=== PATIENT | male | born 1960 | race Caucasian/White ===

== ENCOUNTER 2022-07-25 10:25 | Inpatient (IN) | payer BC ==
--- NOTE | 2022-07-25 10:45 | ED ---
SOB HPI - General Chief Complaint: Shortness of Breath Stated Complaint: SOB Time Seen by Provider: 07/25/22 10:42 Source: patient, RN notes reviewed Mode of arrival: ambulatory Limitations: no limitations - History of Present Illness Initial Comments: Patient is a 61-year-old male presenting to the emergency room with complaints of shortness of breath, generalized fatigue, night sweats, cough and decreased appetite with weight loss over the last 3 weeks. He reports that in May 2022 he contracted Covid and has not been significantly well since that time. He has been treated for pneumonia with antibiotic therapy twice since his diagnosis of Covid via both the emergency room at [facility] and his primary care provider. He states that he is not currently on any antibiotic therapy. He was given inhalers to utilize and states now significant improvement in symptoms from inhaler use. He denies any chest pain not related to discomfort from cough, orthopnea, lower extremity edema, abdominal pain, nausea, vomiting, diarrhea, dizziness, headaches, fevers or chills. He states that prior to being diagnosed with Covid he was overall healthy with the exception of thyroid disease which was well treated with his oral medication regimen. - Related Data Allergies Allergy/AdvReac Type Severity Reaction Status Date / Time No Known Allergies Allergy Verified 07/25/22 10:31 Review of Systems ROS Statement: Those systems with pertinent positive or pertinent negative responses have been documented in the HPI. ROS Other: All systems not noted in ROS Statement are negative. Past Medical History Past Medical History: Thyroid Disorder Additional Past Medical History / Comment(s): Prostate. History of Any Multi-Drug Resistant Organisms: None Reported Past Surgical History: Orthopedic Surgery Additional Past Surgical History / Comment(s): Back Smoking Status: Never smoker Past Alcohol Use History: None Reported Past Drug Use History: None Reported General Exam Limitations: no limitations General appearance: alert, in no apparent distress, other (Appears fatigued) Head exam: Present: atraumatic, normocephalic, normal inspection Eye exam: Present: normal appearance, PERRL, EOMI. Absent: scleral icterus, conjunctival injection, periorbital swelling ENT exam: Present: normal exam, mucous membranes moist Neck exam: Present: normal inspection, full ROM Respiratory exam: Present: wheezes (Right anterior upper), decreased breath sounds. Absent: respiratory distress, rales, rhonchi, stridor, accessory muscle use Cardiovascular Exam: Present: regular rate, normal rhythm, normal heart sounds. Absent: systolic murmur, diastolic murmur, rubs, gallop, clicks GI/Abdominal exam: Present: soft, normal bowel sounds. Absent: distended, tenderness, guarding, rebound, rigid Rectal exam: Present: deferred Extremities exam: Present: normal inspection, full ROM. Absent: pedal edema, joint swelling, calf tenderness Back exam: Present: normal inspection Neurological exam: Present: alert, oriented X3, CN II-XII intact Psychiatric exam: Present: normal affect, normal mood Course Vital Signs 07/25/22 10:28 Temperature 97.6 F Pulse Rate 107 H Respiratory 24 Rate Blood Pressure 137/84 O2 Sat by Pulse 98 Oximetry - Reevaluation(s) Reevaluation #1: Laboratory studies reveal significant leukocytosis, elevated liver enzymes, elevated alk phos and elevated d-dimer. Additional diagnostic imaging a computed tomography scan of the abdomen and pelvis without contrast and CT angiogram of the chest to rule out PE ordered. Patient continues to be hemodynamically stable not requiring any supplemental oxygen, analgesics, or antiemetics. Time: 11:49 Medical Decision Making - Medical Decision Making 61-year-old male presenting to the emergency room with shortness of breath, fatigue, night sweats and generalized unwell feeling ongoing for several months after having Covid despite treatment for Covid and bacterial pneumonia. Will obtain chest x-ray, EKG along with CBC, CMP d-dimer troponin proBNP blood cultures and thyroid level. No indication for supplemental oxygen, breathing treatment or IV antibiotics at this time. CTA was negative for pulmonary emboli or pneumonia in correlated with metastatic disease seen on CT of abdomen and pelvis. CT of the abdomen and pelvis shows metastatic disease throughout the liver with hepatomegaly and port characteristic of the pancreas with masses adjacent to or arising from the pancreas possible sigmoid wall thickening. Given newly found metastatic disease along with leukocytosis will plan for admission for further evaluation and treatment of leukocytosis and metastatic disease. Discussed case with Dr. Shin control officer for [facility] physicians who is accepting of admission. Consult placed for oncology. Attempted to order dedicated computed tomography scan however due to CTA today unable to have contrast again for 24 hours will need ordering again at later time. Will start on IV Levaquin to treat leukocytosis. Plan and findings as above discussed at length with patient and spouse. Case discussed with Dr. Taylor. - Lab Data Result diagrams: 07/25/22 10:58 07/25/22 10:58 Lab Results 07/25/22 07/25/22 07/25/22 Range/Units 10:58 10:58 10:58 WBC 17.9 H (3.8-10.6) k/uL RBC 5.11 (4.30-5.90) m/uL Hgb 15.5 (13.0-17.5) gm/dL Hct 46.6 (39.0-53.0) % MCV 91.2 (80.0-100.0) fL MCH 30.4 (25.0-35.0) pg MCHC 33.3 (31.0-37.0) g/dL RDW 12.0 (11.5-15.5) % Plt Count 376 (150-450) k/uL MPV 8.1 Neutrophils % 80 % Lymphocytes % 4 % Monocytes % 7 % Eosinophils % 8 % Basophils % 1 % Neutrophils # 14.3 H (1.3-7.7) k/uL Lymphocytes # 0.8 L (1.0-4.8) k/uL Monocytes # 1.2 H (0-1.0) k/uL Eosinophils # 1.4 H (0-0.7) k/uL Basophils # 0.1 (0-0.2) k/uL PT 11.6 (9.0-12.0) sec INR 1.1 (<1.2) APTT 24.6 (22.0-30.0) sec D-Dimer 13.02 H (<0.60) mg/L FEU Sodium 137 (137-145) mmol/L Potassium 5.1 (3.5-5.1) mmol/L Chloride 97 L (98-107) mmol/L Carbon Dioxide 28 (22-30) mmol/L Anion Gap 12 mmol/L BUN 19 (9-20) mg/dL Creatinine 0.68 (0.66-1.25) mg/dL Est GFR (CKD-EPI)AfAm >90 (>60 ml/min/1.73 sqM) Est GFR (CKD-EPI)NonAf >90 (>60 ml/min/1.73 sqM) Glucose 124 H (74-99) mg/dL Plasma Lactic Acid Vincenzo (0.7-2.0) mmol/L Calcium 9.1 (8.4-10.2) mg/dL Total Bilirubin 1.5 H (0.2-1.3) mg/dL AST 183 H (17-59) U/L ALT 215 H (4-49) U/L Alkaline Phosphatase 932 H (38-126) U/L Troponin I (0.000-0.034) ng/mL NT-Pro-B Natriuret Pep pg/mL Total Protein 6.5 (6.3-8.2) g/dL Albumin 3.6 (3.5-5.0) g/dL TSH 2.000 (0.465-4.680) mIU/L 07/25/22 07/25/22 07/25/22 Range/Units 10:58 10:58 10:58 WBC (3.8-10.6) k/uL RBC (4.30-5.90) m/uL Hgb (13.0-17.5) gm/dL Hct (39.0-53.0) % MCV (80.0-100.0) fL MCH (25.0-35.0) pg MCHC (31.0-37.0) g/dL RDW (11.5-15.5) % Plt Count (150-450) k/uL MPV Neutrophils % % Lymphocytes % % Monocytes % % Eosinophils % % Basophils % % Neutrophils # (1.3-7.7) k/uL Lymphocytes # (1.0-4.8) k/uL Monocytes # (0-1.0) k/uL Eosinophils # (0-0.7) k/uL Basophils # (0-0.2) k/uL PT (9.0-12.0) sec INR (<1.2) APTT (22.0-30.0) sec D-Dimer (<0.60) mg/L FEU Sodium (137-145) mmol/L Potassium (3.5-5.1) mmol/L Chloride (98-107) mmol/L Carbon Dioxide (22-30) mmol/L Anion Gap mmol/L BUN (9-20) mg/dL Creatinine (0.66-1.25) mg/dL Est GFR (CKD-EPI)AfAm (>60 ml/min/1.73 sqM) Est GFR (CKD-EPI)NonAf (>60 ml/min/1.73 sqM) Glucose (74-99) mg/dL Plasma Lactic Acid Vincenzo 1.9 (0.7-2.0) mmol/L Calcium (8.4-10.2) mg/dL Total Bilirubin (0.2-1.3) mg/dL AST (17-59) U/L ALT (4-49) U/L Alkaline Phosphatase (38-126) U/L Troponin I <0.012 (0.000-0.034) ng/mL NT-Pro-B Natriuret Pep 67 pg/mL Total Protein (6.3-8.2) g/dL Albumin (3.5-5.0) g/dL TSH (0.465-4.680) mIU/L - EKG Data EKG Comments: Sinus rhythm, ventricular rate 91 bpm, OK interval 151 ms, QRS duration 103 ms, QT/QTC 339/388 ms PRT axes 54, 3, 22 - Radiology Data Radiology results: report reviewed, image reviewed Two-view chest x-ray impression shows probable basilar atelectasis correlate to exclude pneumonia. CT chest angiography for PE impression shows no evidence for pulmonary embolism at this time. Metastatic disease to the liver with numerous lesions of hepatic gastric ligament adenopathy. Lungs are clear and free of infiltrate. Right basilar linear atelectasis and elevation of right hemidiaphragm. CT of the abdomen and pelvis shows metastatic disease throughout the liver with hepatomegaly. Poor characteristics of the pancreas. There are 2 masses which are adjacent to or arising from the pancreas greatest 3.8 cm in size. There is also gastrohepatic ligamentous adenopathy and periaortic adenopathy. There is questionable area of sigmoid wall thickening. Disposition Clinical Impression: Metastatic disease Disposition: ADMITTED IP TO THIS HOSP Condition: Stable Is patient prescribed a controlled substance at d/c from ED?: No Referrals: Samuel Whitten MD [Primary Care Provider] - 1-2 days Time of Disposition: 14:19
[2022-07-25 11:18] LABS: Basophils # (A) 0.1 k/uL (0-0.2); Basophils % (A) 1 %; Eosinophils # (A) 1.4 k/uL (0-0.7); Eosinophils % (A) 8 %; HCT 46.6 % (39.0-53.0); HGB 15.5 gm/dL (13.0-17.5); Lymphocytes # (A) 0.8 k/uL (1.0-4.8); Lymphocytes % (A) 4 %; MCH 30.4 pg (25.0-35.0); MCHC 33.3 g/dL (31.0-37.0); MCV 91.2 fL (80.0-100.0); Mean Platelet Volume 8.1; Monocytes # (A) 1.2 k/uL (0-1.0); Monocytes % (A) 7 %; Neutrophils # (A) 14.3 k/uL (1.3-7.7); Neutrophils % (A) 80 %; Platelet Count 376 k/uL (150-450); RBC 5.11 m/uL (4.30-5.90); WBC 17.9 k/uL (3.8-10.6)
[2022-07-25 11:28] LABS: ALT 215 U/L (4-49); AST 183 U/L (17-59); African American GFR (CKD) >90 (>60 ml/min/1.73 sqM); Albumin 3.6 g/dL (3.5-5.0); Alkaline Phosphatase 932 U/L (38-126); Anion Gap 12 mmol/L; Blood Urea Nitrogen 19 mg/dL (9-20); Calcium 9.1 mg/dL (8.4-10.2); Carbon Dioxide 28 mmol/L (22-30); Chloride 97 mmol/L (98-107); Glucose 124 mg/dL (74-99); Non-African American GFR(CKD) >90 (>60 ml/min/1.73 sqM); Potassium 5.1 mmol/L (3.5-5.1); Sodium 137 mmol/L (137-145); Total Bilirubin 1.5 mg/dL (0.2-1.3); Total Protein 6.5 g/dL (6.3-8.2)
--- NOTE | 2022-07-25 11:36 | XR ---
EXAMINATION TYPE: XR chest 2V DATE OF EXAM: 07/25/2022 COMPARISON: NONE HISTORY: Difficulty breathing TECHNIQUE: Frontal and lateral views of the chest are obtained. FINDINGS: There is patchy density at the right lung base, no pneumothorax or pleural effusion. The cardiac silhouette size is within normal limits. Right hemidiaphragm is elevated. The osseous struct ures are intact, there is a spinal curvature, thoracic spondylosis. The aorta is dense. IMPRESSION: Probable basilar atelectasis, correlate to exclude pneumonia and follow-up as indicated
[2022-07-25 11:45] LABS: INR 1.1 (<1.2)
[2022-07-25 11:46] LABS: Partial Thromboplastin Time 24.6 sec (22.0-30.0); Prothrombin Time 11.6 sec (9.0-12.0)
--- NOTE | 2022-07-25 13:13 | CT ---
EXAMINATION TYPE: CT chest angio for PE DATE OF EXAM: 07/25/2022 COMPARISON: None HISTORY: Shortness of breath CT DLP: 688.4 mGycm CONTRAST: CT chest with contrast and 3D reconstruction with MIP imaging is performed without and with IV Contra st, patient injected with 100 ml mL of Isovue 370. Contrast-enhanced CT of the chest was performed through the course of the pulmonary arteries with matt g and mediastinal window settings submitted. 3D reconstruction with MIP imaging was also performed. PULMONARY ARTERIES: The pulmonary arteries and their major tributaries are patent. I do not see connie dence for sizable filling defect to suggest pulmonary embolic process. LUNGS: The lungs are clear and free of infiltrate. Right basilar linear atelectasis and elevation rig ht hemidiaphragm No pulmonary nodule or mass is detected. No pleural effusion. MEDIASTINUM: Thoracic aorta is of normal caliber. The heart is not enlarged. No evidence for medias tinal mass. No mediastinal lymph nodes greater than 1cm. HILAR STRUCTURES: No evidence for mass. No hilar lymph nodes greater than 1 cm. UPPER ABDOMEN: Multiple hepatic lesions noted compatible with metastatic disease. Hepatomegaly. IMPRESSION: 1. No evidence for Pulmonary embolism at this time. 2. Metastatic disease to the liver with numerous lesions noted too numerous to count. Hepato gastric ligament adenopathy.
--- NOTE | 2022-07-25 13:23 | CT ---
EXAMINATION TYPE: CT abdomen pelvis wo con DATE OF EXAM: 07/25/2022 COMPARISON: None HISTORY: Elevated LFTs and alk phos CT DLP: 688.4 mGycm Examination of the solid and hollow viscera is limited given the lack of contrast. FINDINGS: LUNG BASES: No evidence for nodule. No evidence for infiltrate. LIVER/GB: There is hepatomegaly noted within numerous underlying hepatic mass is noted compatible wit h metastatic disease. The lack of contrast does limit evaluation. The gallbladder appears to be contr acted. PANCREAS: There are masses adjacent to or arising from the pancreatic neck and body limited in evalua tion given the lack of contrast. The masses measures 3.8 cm the second mass measures 3.1 cm. This cou ld reflect adenopathy versus mass arising from the pancreas. Dedicated contrast enhanced CT of the ab domen and pelvis is recommended with pancreatic protocol. SPLEEN: No evidence for splenomegaly. No intrasplenic lesions seen. ADRENALS: Nodular thickening of the left adrenal gland could reflect metastatic disease. Right adrena l gland appears unremarkable. KIDNEYS: Parapelvic cysts suggested. No nephrolithiasis. No hydronephrosis. BOWEL: Appendix has a normal appearance. No evidence of bowel obstruction. No inflammatory process. V ague area of bowel wall thickening sigmoid colon axial image 67. Correlate Clinically although relate d to poor distention although if felt clinically indicated consider direct visualization. Lymph nodes: There is adenopathy in the gastrohepatic ligament measuring up to 1.7 cm. Left para-aort ic adenopathy noted measuring up to 1.4 cm. Abdominal aorta: Atheromatous changes seen. No evidence for aneurysm. Genital organs: No significant abnormality. Other: Small amount of free fluid within the pelvis. IMPRESSION: 1. Metastatic disease throughout the liver with hepatomegaly. 2. Poor characterization of the pancreas. As noted there are 2 masses which are adjacent to or arisin g from the pancreas. There is also gastrohepatic ligamentous adenopathy and paraAortic adenopathy. Ap propriate contrast enhanced evaluation is advised. 3. Questionable area of sigmoid wall thickening. See above.
[2022-07-25] MEDS ORDERED: NALOXONE 0.4 MG/ML 1 ML VIAL IV PRN ×2 (13:49→16:02)
[2022-07-25] MEDS ORDERED: LEVOFLOXACIN 500MG-D5W PMX 500 MG in DEXTROSE/WATER 1 100ML.BAG IVPB STA (13:55)
[2022-07-25] MEDS ORDERED: ACETAMINOPHEN TAB 325 MG TAB PO PRN (16:02)
[2022-07-25] MEDS ORDERED: CODEINE 30 MG TAB PO PRN (16:05)
[2022-07-25] MEDS ORDERED: ALBUTEROL NEBULIZED 2.5 MG/3 ML INHALATION PRN (16:06)
--- NOTE | 2022-07-25 16:07 | P.HPIM ---
History of Present Illness H&P Date: 07/25/22 Chief Complaint: Generalized weakness, shortness of breath 61-year-old man with medical history of BPH, hypothyroidism presented with generalized weakness and shortness of breath. Patient says that he's been progressively declining since he got Covid in the beginning of May of this year. Since that time, patient has had a chronic cough associated with shortness of breath. Patient says that he is also been losing weight since May, and has now lost about 10-15 pounds. In addition, he's noticed some increasing abdominal pain but does not associate this with nausea, vomiting, constipation, diarrhea. He says that he also gets chills, but no fevers. Patient has not noticed swelling of the legs. Patient's most concerning complaint is that he has almost no energy to do any activities like he used to. He denies fevers, chest pain, palpitations, syncope, presyncope, dysuria, dyschezia, numbness of extremities. In the emergency room, patient was afebrile, 137/84, heart rate 107, 98% on room air. CBC demonstrates leukocytosis to 17.9. Chemistries are unremarkable. Liver function tests show an elevated total bilirubin of 1.5, AST of 183, ALT of 215, alkaline phosphatase of 932. TSH was 2. Initial troponin is less than 0.012. Coags are unremarkable. D-dimer is 13.02. Chest x-ray demonstrates patchy density at the right lung base concerning for pneumonia. Chest CTA shows no evidence of pulmonary embolism but shows metastatic disease to liver with numerous lesions too numerous to count, hepatogastric ligament adenopathy. CT of the abdomen/pelvis redemonstrates metastatic disease, 2 masses which are adjacent to arising from the pancreas, para-aortic adenopathy, questionable area of sigmoid wall thickening. EKG demonstrated sinus rhythm with no evidence of ischemia. All Systems reviewed and pertinent positives and negatives noted in HPI, all other symptoms are negative Gen: in no apparent distress, resting comfortably in bed Eyes: PERRL, no scleral injection or icterus HENT: normocephalic, atraumatic, good hearing acuity, moist mucous membranes Neck: no tracheal deviation, full range of motion Resp: good air exchange, breathing comfortably with no accessory muscle use, no tactile fremitus, crackles in the right lung base CVS: good distal perfusion x 4, no pitting edema, regular rate and rhythm without murmurs GI: soft, tenderness to palpation in the epigastrium, right upper quadrant, ND, no hepatosplenomegaly : no suprapubic tenderness, no CVAT, frank catheter not present MSK: no clubbing, no cyanosis, no noted contractures of extremities Skin: no noted rashes, petechiae; temperature of skin is appropriate Neuro: moving all extremities without signs of weakness, CN II-XII intact Psych: cooperative, euthymic mood, insight and judgment intact Labs and imaging reviewed as above Assessment/plan: Sepsis Community acquired pneumonia -Admit to inpatient, telemetry -Ceftriaxone, azithromycin -Follow up blood cultures -Follow up sputum cultures -Oxygen when necessary -Cough syrup when necessary -Albuterol when necessary -PT/OT Metastatic cancer to liver -Oncology consult -Surgery consult -Computed tomography scan with pancreatic protocol BPH Hypothyroidism -Home medications reviewed and reconciled Patient is full code DVT prophylaxis with enoxaparin Past Medical History Past Medical History: Thyroid Disorder Additional Past Medical History / Comment(s): Prostate. History of Any Multi-Drug Resistant Organisms: None Reported Past Surgical History: Orthopedic Surgery Additional Past Surgical History / Comment(s): Back Smoking Status: Never smoker Past Alcohol Use History: None Reported Past Drug Use History: None Reported Medications and Allergies Home Medications Medication Instructions Recorded Confirmed Type Albuterol Inhaler [Ventolin Hfa 1 puff INHALATION RT-Q6H PRN 07/25/22 07/25/22 History Inhaler] Tamsulosin [Flomax] 0.4 mg PO DAILY 07/25/22 07/25/22 History Thyroid,Pork [Stitching Machine Feeder Or Offbearer Thyroid] 60 mg PO DAILY 07/25/22 07/25/22 History Allergies Allergy/AdvReac Type Severity Reaction Status Date / Time No Known Allergies Allergy Verified 07/25/22 14:31 Physical Exam Osteopathic Statement: *. No significant issues noted on an osteopathic structural exam other than those noted in the History and Physical/Consult. Vitals: Vital Signs Temp Pulse Resp BP Pulse Ox 07/25/22 14:00 22 07/25/22 10:28 97.6 F 107 H 24 137/84 98 Intake and Output 07/25/22 07/25/22 07/25/22 06:59 14:59 22:59 Other: Weight 89.811 kg Results CBC & Chem 7: 07/25/22 10:58 07/25/22 10:58 Labs: Abnormal Lab Results - Last 24 Hours (Table) 07/25/22 07/25/22 07/25/22 Range/Units 10:58 10:58 10:58 WBC 17.9 H (3.8-10.6) k/uL Neutrophils # 14.3 H (1.3-7.7) k/uL Lymphocytes # 0.8 L (1.0-4.8) k/uL Monocytes # 1.2 H (0-1.0) k/uL Eosinophils # 1.4 H (0-0.7) k/uL D-Dimer 13.02 H (<0.60) mg/L FEU Chloride 97 L (98-107) mmol/L Glucose 124 H (74-99) mg/dL Total Bilirubin 1.5 H (0.2-1.3) mg/dL AST 183 H (17-59) U/L ALT 215 H (4-49) U/L Alkaline Phosphatase 932 H (38-126) U/L
[2022-07-25] MEDS: ENOXAPARIN 40 MG/0.4 ML SYRINGE SQ SCH (16:32)
[2022-07-25] MEDS: HYDROcodone/APAP 5-325MG 1 EACH TAB PO PRN (17:10)
[2022-07-25] MEDS: AZITHROMYCIN 500 MG in SODIUM CHLORIDE 0.9% 250 ML IVPB SCH (17:11)
[2022-07-26] MEDS: ONDANSETRON 4 MG/2 ML VIAL IVP PRN (04:28)
[2022-07-26] MEDS: MORPHINE SULFATE 4 MG/ML SYRINGE IVP PRN ×3 (04:29→12:29)
[2022-07-26] MEDS: TAMSULOSIN 0.4 MG CAP.ER.24H PO SCH ×2 (08:46→08:47)
[2022-07-26] MEDS: THYROID, PORK 30 MG TAB PO SCH (08:47)
[2022-07-26] MEDS: ENOXAPARIN 40 MG/0.4 ML SYRINGE SQ SCH (08:47)
[2022-07-26] MEDS: AZITHROMYCIN 500 MG in SODIUM CHLORIDE 0.9% 250 ML IVPB SCH (08:52)
[2022-07-26 08:53] LABS: HCT 40.6 % (39.6-50.0); HGB 13.7 g/dL (13.0-17.0); MCH 30.3 pg (27.0-32.0); MCHC 33.7 g/dL (32.0-37.0); MCV 89.8 fL (80.0-97.0); Mean Platelet Volume 10.1 fL (9.5-12.2); NRBC Per 100 WBC 0 /100 WBCS (0.0-0.0); Platelet Count 392 X 10*3/uL (140-440); RBC 4.52 X 10*6/uL (4.40-5.60); RDW 12.4 % (11.5-14.5); WBC 17.82 X 10*3/uL (4.50-10.00)
[2022-07-26 09:25] LABS: African American GFR (CKD) 116.4 (60.0-200.0); Albumin 3.1 g/dL (3.8-4.9); Albumin/Globulin Ratio 1.29 (1.60-3.17); BUN/Creat Ratio 22.14 Ratio (12.00-20.00); Blood Urea Nitrogen 15.5 mg/dL (9.0-27.0); Calcium 8.9 mg/dL (8.7-10.3); Globulin 2.4 g/dL (1.6-3.3); Non-African American GFR(CKD) 100.4 (60.0-200.0); Potassium 5.4 mmol/L (3.5-5.5); Total Bilirubin 0.9 mg/dL (0.30-1.20); Total Protein 5.5 g/dL (6.2-8.2)
[2022-07-26 09:45] LABS: Basophils # (A) 0.12 X 10*3/uL (0.00-0.10); Basophils % (A) 0.7 %; Eosinophils # (A) 1.59 X 10*3/uL (0.04-0.35); Eosinophils % (A) 8.9 %; Immature Grans, Automated 1.1 %; Lymphocytes # (A) 0.95 X 10*3/uL (0.90-5.00); Lymphocytes % (A) 5.3 %; Monocytes # (A) 1.85 X 10*3/uL (0.20-1.00); Monocytes % (A) 10.4 %; Neutrophils # (A) 13.11 X 10*3/uL (1.80-7.70); Neutrophils % (A) 73.6 %
--- NOTE | 2022-07-26 13:38 | P.PN ---
Subjective Progress Note Date: 07/26/22 Principal diagnosis: SOB Hospital Course: 61-year-old male with history of BPH and hypothyroidism presenting with generalized weakness and shortness of breath. Labs significant for a leukocytosis, elevated liver enzymes, increased d-dimer. CTA chest showed no evidence of pulmonary embolism but showed metastatic disease to liver. CT abdomen and pelvis also showed metastatic disease, 2 masses were adjacent to the pancreas, paralytic adenopathy, questionable area of sigmoid wall thickening. Patient admitted for sepsis, recurrent pneumonia, and also further evaluation of metastatic cancer to liver. Subjective: Patient seen and examined at bedside. No acute events overnight. He claims that his shortness of breath is about the same. Denies any use of oxygen. He continues to have abdominal pain mostly in the right upper quadrant. Pertinent positives and negatives as discussed above, a complete review of systems was performed and all other systems are negative. Vitals Signs Reviewed. General: nontoxic, no distress, appears at stated age Derm: warm, dry Head: atraumatic, normocephalic, symmetric Eyes: EOMI, no lid lag, anicteric sclera Mouth: no lip lesion, mucus membranes moist Cardiovascular: S1S2 reg, no murmur Lungs: CTA bilateral, no rhonchi, no rales , no accessory muscle use Abdominal: soft, mild tender to palpation in right upper quadrant, no guarding, no appreciable organomegaly Ext: no gross muscle atrophy, no edema, no contractures Neuro: CN II-XI grossly intact, no focal neuro deficits Psych: Alert, oriented, appropriate affect Assessment and Plan: Sepsis Community acquired pneumonia -Admit to inpatient, telemetry -Ceftriaxone, azithromycin -Follow up blood cultures -Follow up sputum cultures -Oxygen when necessary -Cough syrup when necessary -Albuterol when necessary -PT/OT Metastatic cancer to liver -Oncology consult -Surgery consult BPH Hypothyroidism -Home medications Patient is full code DVT prophylaxis with enoxaparin Objective - Vital Signs Vital signs: Vital Signs Temp 99.4 F 07/26/22 12:17 Pulse 67 07/26/22 12:17 Resp 16 07/26/22 12:17 BP 130/85 07/26/22 12:17 Pulse Ox 95 07/26/22 12:17 FiO2 Intake & Output 07/25/22 07/26/22 07/26/22 18:59 06:59 18:59 Weight 89.811 kg - Labs CBC & Chem 7: 07/26/22 05:40 07/26/22 05:40 Labs: Abnormal Lab Results - Last 24 Hours (Table) 07/26/22 07/26/22 Range/Units 05:40 05:40 WBC 17.82 H (4.50-10.00) X 10*3/uL Immature Gran # 0.20 H (0.00-0.04) X 10*3/uL Neutrophils # 13.11 H (1.80-7.70) X 10*3/uL Monocytes # 1.85 H (0.20-1.00) X 10*3/uL Eosinophils # 1.59 H (0.04-0.35) X 10*3/uL Basophils # 0.12 H (0.00-0.10) X 10*3/uL Carbon Dioxide 29.0 H (20.0-27.5) mmol/L BUN/Creatinine Ratio 22.14 H (12.00-20.00) Ratio AST 108 H (14-35) U/L ALT 172 H (10-49) U/L Alkaline Phosphatase 787 H (41-126) U/L Total Protein 5.5 L (6.2-8.2) g/dL Albumin 3.1 L (3.8-4.9) g/dL Albumin/Globulin Ratio 1.29 L (1.60-3.17) g/dL Microbiology - Last 24 Hours (Table) 07/25/22 10:58 Blood Culture - Preliminary Blood No Growth after 24 hours 07/25/22 10:42 Blood Culture - Preliminary Blood No Growth after 24 hours
--- NOTE | 2022-07-26 16:18 | P.CONS ---
History of Present Illness - Reason for Consult Consult date: 07/26/22 Liver masses, adenopathy - History of Present Illness The patient is a 58-year-old white male, with well-controlled medical problems at baseline. The patient states that he contracted COVID in 05/23. Since then he has had persistent issues with intermittent shortness of breath and cough. He states that his symptoms would improve and then recur. They have become somewhat more persistent and prominent, leading to this admission. Other associated symptoms include decreased appetite and loss of weight of about 10-15 pounds. He has had some vague upper abdominal discomfort but no associated nausea or vomiting, or change in bowel habits. The patient had chest imaging on admission including CTA that showed right l ower lobe suggestive of pneumonia. Incidentally the liver was involved with multiple hypodense masses highly suggestive of metastasis. There was also upper abdominal, pathologic appearing adenopathy. The patient then had dedicated CT of the abdomen and pelvis confirmed these findings and also showed 2 masses associated with the pancreas, suggestive of either pancreatic primary or possibly peripancreatic enlarged lymph nodes was therefore admitted for further management. In any prior history of malignancy. He states that he has been a nonsmoker and did not recall any significant secondhand smoking exposure either. He drinks alcohol socially. He states that some family members on his mother's side had prostate cancer. He states that he has had a colonoscopy within the last 3-4 years Review of Systems Constitutional: Reports fatigue, Reports poor appetite, Reports weight loss Eyes: denies blurred vision, denies pain Ears: deny: decreased hearing, ear discharge, earache, tinnitus Ears, nose, mouth and throat: Denies headache, Denies sore throat Cardiovascular: Denies chest pain, Denies shortness of breath Respiratory: Reports congestion, Reports cough, Reports dyspnea Gastrointestinal: Reports dyspepsia Genitourinary: Reports as per HPI Musculoskeletal: Denies myalgias Integumentary: Denies pruritus, Denies rash Neurological: Reports weakness Psychiatric: Denies anxiety, Denies depression Endocrine: Reports fatigue Hematologic/Lymphatic: Reports as per HPI Past Medical History Past Medical History: Thyroid Disorder Additional Past Medical History / Comment(s): Prostate. 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 Thyroid] 60 mg PO DAILY 07/25/22 07/25/22 History Allergies Allergy/AdvReac Type Severity Reaction Status Date / Time No Known Allergies Allergy Verified 07/25/22 14:31 Physical Exam Vitals: Vital Signs Temp Pulse Resp BP Pulse Ox 07/26/22 12:17 99.4 F 67 16 130/85 95 07/26/22 04:32 71 16 120/75 97 07/26/22 03:00 77 20 128/90 96 07/26/22 00:00 99.4 F 85 18 118/82 99 07/25/22 20:35 72 18 126/78 98 07/25/22 19:20 71 16 114/74 99 07/25/22 17:17 69 18 114/76 98 07/25/22 16:39 73 17 130/87 97 - Constitutional General appearance: no acute distress - EENT Eyes: EOMI, PERRLA ENT: hearing grossly normal, normal oropharynx - Neck Neck: no lymphadenopathy Thyroid: bilateral: normal size - Respiratory Respiratory: right: rales (Minor), left: CTA - Cardiovascular Rhythm: regular Heart sounds: normal: S1, S2 - Gastrointestinal Wakefulness and right upper quadrant. No tenderness General gastrointestinal: normal bowel sounds, soft - Integumentary Integumentary: normal - Neurologic Neurologic: CNII-XII intact - Musculoskeletal Musculoskeletal: generalized weakness, strength equal bilaterally - Psychiatric Psychiatric: A&O x's 3, appropriate affect Results CBC & Chem 7: 07/26/22 05:40 07/26/22 05:40 Labs: Abnormal Lab Results - Last 24 Hours (Table) 07/26/22 07/26/22 Range/Units 05:40 05:40 WBC 17.82 H (4.50-10.00) X 10*3/uL Immature Gran # 0.20 H (0.00-0.04) X 10*3/uL Neutrophils # 13.11 H (1.80-7.70) X 10*3/uL Monocytes # 1.85 H (0.20-1.00) X 10*3/uL Eosinophils # 1.59 H (0.04-0.35) X 10*3/uL Basophils # 0.12 H (0.00-0.10) X 10*3/uL Carbon Dioxide 29.0 H (20.0-27.5) mmol/L BUN/Creatinine Ratio 22.14 H (12.00-20.00) Ratio AST 108 H (14-35) U/L ALT 172 H (10-49) U/L Alkaline Phosphatase 787 H (41-126) U/L Total Protein 5.5 L (6.2-8.2) g/dL Albumin 3.1 L (3.8-4.9) g/dL Albumin/Globulin Ratio 1.29 L (1.60-3.17) g/dL Microbiology - Last 24 Hours (Table) 07/25/22 10:58 Blood Culture - Preliminary Blood No Growth after 24 hours 07/25/22 10:42 Blood Culture - Preliminary Blood No Growth after 24 hours Chest x-ray: report reviewed CT scan - abdomen: report reviewed CT scan - chest: report reviewed CT scan - pelvis: report reviewed Assessment and Plan (1) Metastatic disease Narrative/Plan: The patient is presented with a picture of metastatic cancer, with numerous hypodense 2 through the liver. He also has some upper abdominal lymphadenopathy, and pancreatic or biliary pancreatic lesions - The results of the scans and implications were discussed in detail with him. As noted above, he was advised that he appears to have metastatic malignancy. At this time an obvious primary site cannot be determined, but given the presentation, and the possibility of pancreatic lesions, a pancreatic primary is definitely in the differential. - Patient was advised that the next step in workup would be to get a tissue diagnosis. CT-guided biopsy of the liver will be ordered. - If pathology confirms upper GI/pancreatobiliary origin, then MRCP can be performed to evaluate the pancreas. If this confirms that the lesions noted on CT scan are arising from the pancreas, and a pancreatic primary can be confirmed. - If pathology is concerning for other primary sites, then appropriate workup for the same can be ordered. - We also discussed that in general most solid tumor malignancies, if metastatic are not curable. However we would need a definite pathologic diagnosis and primary site before any specific information can be given regarding treatment options and prognosis. Current Visit: Yes Status: Acute Code(s): C79.9 - SECONDARY MALIGNANT NEOPLASM OF UNSPECIFIED SITE SNOMED Code(s): 298854691 Plan: Defer to the admitting service for treatment of possible pneumonia
--- NOTE | 2022-07-26 16:32 | P.GSCN ---
History of Present Illness Consult date: 07/26/22 History of present illness: CHIEF COMPLAINT: Shortness of breath and generalized weakness HISTORY OF PRESENT ILLNESS: This is a 61-year-old male who presented to the [facility] with complaints of generalized weakness and shortness of breath. Patient reports that he has not been feeling well since May when he was initially diagnosed with cold bid. Since then he has been treated for pneumonia as and viral and bacterial infections. Patient reports that he is overall feeling weak. And is having abdominal pain. He reports a decrease in appetite over the last 3-4 days. He's had 15 pound weight loss within the last 1-2 months. He does report having small bowel movements and flatus. Last colonoscopy was about 10 years ago. Computed tomography scan of the abdomen and pelvis completed showing concerns for metastatic disease throughout the liver with hepatomegaly. There was too masses adjacent to or arising from the pancreas. Surgical service consulted in regards to the hepatic masses as well as consult was placed for oncology. Patient denies any prior cancer history. Patient is currently on antibiotics for possible pneumonia. Patient seen and examined with Dr. lama PAST MEDICAL HISTORY: See list. PAST SURGICAL HISTORY: See list. MEDICATIONS: See list. ALLERGIES: See list. SOCIAL HISTORY: No illicit drug use. REVIEW OF SYSTEMS: CONSTITUTIONAL: Denies fever or chills. HEENT: Denies blurred vision, vision changes, or eye pain. Denies hemoptysis CARDIOVASCULAR: Denies chest pain or pressure. RESPIRATORY: No shortness of breath. GASTROINTESTINAL: See HPI for pertinent findings HEMATOLOGIC: Denies bleeding disorders. GENITOURINARY: Denies any blood in urine or increased urinary frequency. SKIN: Denies pruitis. Denies rash. PHYSICAL EXAM: VITAL SIGNS: Reviewed GENERAL: Well-developed in no acute distress. HEENT: No sclera icterus. Extraocular movements grossly intact. Moist buccal mucosa. Head is atraumatic, normocephalic. No nasal drainage. ABDOMEN: Soft. Nondistended. Tenderness with palpation in the right upper quadrant and epigastric area NEUROLOGIC: Alert and oriented. Cranial nerves II through XII grossly intact. LABORATORY DATA: WBC is 17.8 Hgb 13.7 platelets 392 Sodium is 139 potassium is 5.4 creatinine 0.7 Glucose 124 Lactic acid 1.9 Total bilirubin 1.5 down to 0.90 AST 183 down to 108 ALT 2:15 down to 172 alk phos 932 down to 787 Magnesium 2.0 TSH 2.0 Elevated d-dimer IMAGING: Computed tomography scan of the abdomen and pelvis metastatic disease throughout the liver with hepatomegaly. Poor characterization of the pancreas. As noted there are 2 masses which are adjacent to or arising from the pancreas. There is also gastrohepatic ligament this adenopathy and para-aortic adenopathy. Question will area of sigmoid wall thickening. Chest CTA no evidence of pulmonary embolism. Metastatic disease to the liver with numerous lesions noted to numerous to count. A gastric ligament adenopathy. ASSESSMENT: 1. Metastatic disease throughout the liver with hepatomegaly and 2 masses adjacent or arising from the pancreas with gastrohepatic ligament adenopathy and para-aortic adenopathy 2. Abdominal pain PLAN: -EGD and colonoscopy scheduled for , 07/28/[address] lama -Start clear liquid diet -Start GoLYTELY prep tomorrow morning -Continue oncology workup -Patient scheduled for liver biopsy by interventional radiology Thank you for this consultation Physician Esthetician note has been reviewed by physician. Signing provider agrees with the documented findings, assessment, and plan of care. Past Medical History Past Medical History: Thyroid Disorder Additional Past Medical History / Comment(s): Prostate. 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] 60 mg PO DAILY 07/25/22 07/25/22 History Allergies Allergy/AdvReac Type Severity Reaction Status Date / Time No Known Allergies Allergy Verified 07/25/22 14:31 Surgical - Exam Vital Signs Temp Pulse Resp BP Pulse Ox 97.6 F 107 H 24 137/84 98 07/25/22 10:28 07/25/22 10:28 07/25/22 10:28 07/25/22 10:28 07/25/22 10:28 Results - Labs 07/26/22 05:40 07/26/22 05:40 Abnormal Lab Results - Last 24 Hours (Table) 07/25/22 07/25/22 07/26/22 Range/Units 10:58 10:58 05:40 WBC 17.82 H (4.50-10.00) X 10*3/uL Immature Gran # 0.20 H (0.00-0.04) X 10*3/uL Neutrophils # 13.11 H (1.80-7.70) X 10*3/uL Monocytes # 1.85 H (0.20-1.00) X 10*3/uL Eosinophils # 1.59 H (0.04-0.35) X 10*3/uL Basophils # 0.12 H (0.00-0.10) X 10*3/uL D-Dimer 13.02 H (<0.60) mg/L FEU Chloride 97 L (98-107) mmol/L Carbon Dioxide (20.0-27.5) mmol/L BUN/Creatinine Ratio (12.00-20.00) Ratio Glucose 124 H (74-99) mg/dL Total Bilirubin 1.5 H (0.2-1.3) mg/dL AST 183 H (17-59) U/L ALT 215 H (4-49) U/L Alkaline Phosphatase 932 H (38-126) U/L Total Protein (6.2-8.2) g/dL Albumin (3.8-4.9) g/dL Albumin/Globulin Ratio (1.60-3.17) g/dL 07/26/22 Range/Units 05:40 WBC (4.50-10.00) X 10*3/uL Immature Gran # (0.00-0.04) X 10*3/uL Neutrophils # (1.80-7.70) X 10*3/uL Monocytes # (0.20-1.00) X 10*3/uL Eosinophils # (0.04-0.35) X 10*3/uL Basophils # (0.00-0.10) X 10*3/uL D-Dimer (<0.60) mg/L FEU Chloride (98-107) mmol/L Carbon Dioxide 29.0 H (20.0-27.5) mmol/L BUN/Creatinine Ratio 22.14 H (12.00-20.00) Ratio Glucose (74-99) mg/dL Total Bilirubin (0.2-1.3) mg/dL AST 108 H (17-59) U/L ALT 172 H (4-49) U/L Alkaline Phosphatase 787 H (38-126) U/L Total Protein 5.5 L (6.2-8.2) g/dL Albumin 3.1 L (3.8-4.9) g/dL Albumin/Globulin Ratio 1.29 L (1.60-3.17) g/dL Diabetes panel 07/25/22 07/26/22 Range/Units 10:58 05:40 Sodium 137 139 (137-145) mmol/L Potassium 5.1 5.4 (3.5-5.1) mmol/L Chloride 97 L 100 (98-107) mmol/L Carbon Dioxide 28 29.0 H (22-30) mmol/L BUN 19 15.5 (9-20) mg/dL Creatinine 0.68 0.7 (0.66-1.25) mg/dL Glucose 124 H 96 (74-99) mg/dL Calcium 9.1 8.9 (8.4-10.2) mg/dL AST 183 H 108 H (17-59) U/L ALT 215 H 172 H (4-49) U/L Alkaline Phosphatase 932 H 787 H (38-126) U/L Total Protein 6.5 5.5 L (6.3-8.2) g/dL Albumin 3.6 3.1 L (3.5-5.0) g/dL Thyroid panel 07/25/22 Range/Units 10:58 TSH 2.000 (0.465-4.680) mIU/L Calcium panel 07/25/22 07/26/22 Range/Units 10:58 05:40 Calcium 9.1 8.9 (8.4-10.2) mg/dL Albumin 3.6 3.1 L (3.5-5.0) g/dL Pituitary panel 07/25/22 07/26/22 Range/Units 10:58 05:40 Sodium 137 139 (137-145) mmol/L Potassium 5.1 5.4 (3.5-5.1) mmol/L Chloride 97 L 100 (98-107) mmol/L Carbon Dioxide 28 29.0 H (22-30) mmol/L BUN 19 15.5 (9-20) mg/dL Creatinine 0.68 0.7 (0.66-1.25) mg/dL Glucose 124 H 96 (74-99) mg/dL Calcium 9.1 8.9 (8.4-10.2) mg/dL TSH 2.000 (0.465-4.680) mIU/L Adrenal panel 07/25/22 07/26/22 Range/Units 10:58 05:40 Sodium 137 139 (137-145) mmol/L Potassium 5.1 5.4 (3.5-5.1) mmol/L Chloride 97 L 100 (98-107) mmol/L Carbon Dioxide 28 29.0 H (22-30) mmol/L BUN 19 15.5 (9-20) mg/dL Creatinine 0.68 0.7 (0.66-1.25) mg/dL Glucose 124 H 96 (74-99) mg/dL Calcium 9.1 8.9 (8.4-10.2) mg/dL Total Bilirubin 1.5 H 0.90 (0.2-1.3) mg/dL AST 183 H 108 H (17-59) U/L ALT 215 H 172 H (4-49) U/L Alkaline Phosphatase 932 H 787 H (38-126) U/L Total Protein 6.5 5.5 L (6.3-8.2) g/dL Albumin 3.6 3.1 L (3.5-5.0) g/dL
[2022-07-26] MEDS: HYDROcodone/APAP 5-325MG 1 EACH TAB PO PRN (19:15)
[2022-07-27] MEDS: MORPHINE SULFATE 4 MG/ML SYRINGE IVP PRN ×2 (04:04→18:43)
[2022-07-27] MEDS: HYDROcodone/APAP 5-325MG 1 EACH TAB PO PRN ×3 (04:33→21:00)
[2022-07-27] MEDS: THYROID, PORK 30 MG TAB PO SCH (06:16)
[2022-07-27] MEDS: ENOXAPARIN 40 MG/0.4 ML SYRINGE SQ SCH (08:44)
[2022-07-27] MEDS ORDERED: PEG 3350 (236 GM/BTL) + LYTES 4,000 ML BOTTLE PO ONE (09:00)
[2022-07-27] MEDS: TAMSULOSIN 0.4 MG CAP.ER.24H PO SCH (09:27)
[2022-07-27] MEDS: AZITHROMYCIN 500 MG in SODIUM CHLORIDE 0.9% 250 ML IVPB SCH (09:27)
[2022-07-27] MEDS ORDERED: diazePAM 5 MG TAB PO STA (11:30)
[2022-07-27] MEDS: ONDANSETRON 4 MG/2 ML VIAL IVP PRN ×2 (11:33→17:30)
--- NOTE | 2022-07-27 11:43 | P.PN ---
Subjective Progress Note Date: 07/27/22 Principal diagnosis: SOB Hospital Course: 61-year-old male with history of BPH and hypothyroidism presenting with generalized weakness and shortness of breath. Labs significant for a leukocytosis, elevated liver enzymes, increased d-dimer. CTA chest showed no evidence of pulmonary embolism but showed metastatic disease to liver. CT abdomen and pelvis also showed metastatic disease, 2 masses were adjacent to the pancreas, para-aortic adenopathy, questionable area of sigmoid wall thickening. Patient admitted for sepsis, recurrent pneumonia, and also further evaluation of metastatic cancer to liver. Subjective: Patient seen and examined at bedside. No acute events overnight. He denies any shortness of breath or cough. Denies any chest pain, abdominal pain, urinary or bowel complaints. Pertinent positives and negatives as discussed above, a complete review of systems was performed and all other systems are negative. Vitals Signs Reviewed. General: nontoxic, no distress, appears at stated age Derm: warm, dry Head: atraumatic, normocephalic, symmetric Eyes: EOMI, no lid lag, anicteric sclera Mouth: no lip lesion, mucus membranes moist Cardiovascular: S1S2 reg, no murmur Lungs: CTA bilateral, no rhonchi, no rales , no accessory muscle use Abdominal: soft, nontender, no guarding, no appreciable organomegaly Ext: no gross muscle atrophy, no edema, no contractures Neuro: CN II-XI grossly intact, no focal neuro deficits Psych: Alert, oriented, appropriate affect Assessment and Plan: Sepsis - resolving Community acquired pneumonia -Ceftriaxone, azithromycin -Follow up blood cultures- NGTD -Oxygen when necessary -Cough syrup when necessary -Albuterol when necessary -PT/OT Metastatic cancer to liver - unclear about primary Transaminitis -Oncology consult - IR to do liver biopsy -Surgery consult - will likely need EGD and colonoscopy tomorrow BPH Hypothyroidism -Home medications Patient is full code DVT prophylaxis with enoxaparin (holding today for liver biopsy) Discharge date: 07/[address]: Likely home Objective - Vital Signs Vital signs: Vital Signs Temp 97.6 F 07/27/22 07:58 Pulse 80 07/27/22 07:58 Resp 16 07/27/22 07:58 BP 124/80 07/27/22 07:58 Pulse Ox 96 07/27/22 07:58 FiO2 Intake & Output 07/26/22 07/27/2222 18:59 06:59 18:59 Output Total 3 Balance -3 Weight 89.811 kg Output: Urine 3 Other: Voiding Method Toilet - Labs CBC & Chem 7: 07/26/22 05:40 07/26/22 05:40 Labs: Microbiology - Last 24 Hours (Table) 07/25/22 10:58 Blood Culture - Preliminary Blood No Growth after 24 hours 07/25/22 10:42 Blood Culture - Preliminary Blood No Growth after 24 hours
[2022-07-27] MEDS: HYDROmorphone 0.5 MG/0.5 ML SYRINGE IVP STA ×2 (12:14→13:12)
--- NOTE | 2022-07-27 13:18 | P.PCN ---
Date of Procedure: 07/27/22 Preoperative Diagnosis: liver masses Postoperative Diagnosis: same Anesthesia: local, other Estimated Blood Loss (ml): 1 Pathology: other (in formalin) Condition: stable Disposition: no change Operative Findings: single pass left lobe liver mass, 18 ga, u/s guide
--- NOTE | 2022-07-27 13:23 | US ---
EXAMINATION TYPE: US biopsy liver DATE OF EXAM: 07/27/2022 HISTORY: Liver masses. FINDINGS: Maximal barrier technique was utilized. Hand hygiene achieved with soap and water and alco hol-based hand rub. The skin overlying a suitable path to the patient's mass in the left lobe of the liver was localized with ultrasound and the overlying skin prepped and draped. Ultrasound was utiliz ed with sterile technique. Lidocaine was used for local anesthesia. A skin zakia was made with a sca lpel. An 18-gauge needle was advanced under direct ultrasound guidance and core specimen obtained of the mass. Specimen submitted in formalin to Pathology. Following the procedure, hemostasis achieved and the patient is discharged in stable condition without complication. IMPRESSION:STATUS POST ULTRASOUND GUIDED CORE BIOPSY OF left lobe liver MASS, PATHOLOGY IS PENDING. THIS PROCEDURE IS PERFORMED BY THE UNDERSIGNED.
--- NOTE | 2022-07-27 13:41 | P.PN ---
Subjective Progress Note Date: 07/27/22 CHIEF COMPLAINT: Generalized weakness HISTORY OF PRESENT ILLNESS: Patient scheduled for liver biopsy today. Pain is controlled. Denies any nausea or vomiting. Pain is still located across the upper abdomen mostly on the right side and epigastric and into his back. He denies any nausea or vomiting. Afebrile. Currently on clear liquid diet. Afebrile. WBC is 17.8 to H3 13.7 platelets 392 sodium is 139 potassium is 5.4 creatinine 0.7 total bilirubin is down from 1.5-0.9 AST 108 ALT 172 and alk phos 787 labs from yesterday. Labs for today pending Patient seen and examined with Dr. lama PHYSICAL EXAM: VITAL SIGNS: Reviewed. GENERAL: Well-developed in no acute distress. HEENT: No sclera icterus. Extraocular movements grossly intact. Moist buccal mucosa. Head is atraumatic, normocephalic. ABDOMEN: Soft. Nondistended. NEUROLOGIC: Alert and oriented. Cranial nerves II through XII grossly intact. ASSESSMENT: 1. Metastatic disease throughout the liver with hepatomegaly and 2 masses adjacent or arising from the pancreas with gastrohepatic ligament adenopathy and para-aortic adenopathy 2. Abdominal pain PLAN: -EGD and colonoscopy scheduled for , 07/28/[address] lama -Start GoLYTELY prep today -Clear liquid diet today -Nothing by mouth after midnight Physician Dyeing Machine Feeder note has been reviewed by physician. Signing provider agrees with the documented findings, assessment, and plan of care. Objective - Vital Signs Vital signs: Vital Signs Temp 97.6 F 07/27/22 07:58 Pulse 80 07/27/22 12:55 Resp 17 07/27/22 12:55 BP 123/82 07/27/22 12:55 Pulse Ox 95 07/27/22 12:55 FiO2 Intake & Output 07/26/22 07/27/22 07/27/22 18:59 06:59 18:59 Output Total 3 Balance -3 Weight 89.811 kg Output: Urine 3 Other: Voiding Method Toilet - Labs CBC & Chem 7: 07/26/22 05:40 07/26/22 05:40 Labs: Microbiology - Last 24 Hours (Table) 07/25/22 10:58 Blood Culture - Preliminary Blood No Growth after 48 hours 07/25/22 10:42 Blood Culture - Preliminary Blood No Growth after 48 hours
[2022-07-27 14:24] LABS: Basophils # (A) 0.1 k/uL (0-0.2); Basophils % (A) 1 %; Eosinophils # (A) 1.3 k/uL (0-0.7); Eosinophils % (A) 7 %; HCT 43.9 % (39.0-53.0); HGB 14.4 gm/dL (13.0-17.5); Lymphocytes # (A) 0.7 k/uL (1.0-4.8); Lymphocytes % (A) 4 %; MCH 30.6 pg (25.0-35.0); MCHC 32.8 g/dL (31.0-37.0); MCV 93.3 fL (80.0-100.0); Monocytes # (A) 1.4 k/uL (0-1.0); Monocytes % (A) 8 %; Neutrophils % (A) 80 %; Platelet Count 364 k/uL (150-450); WBC 18.7 k/uL (3.8-10.6)
[2022-07-27 14:34] LABS: ALT 159 U/L (4-49); AST 112 U/L (17-59); African American GFR (CKD) >90 (>60 ml/min/1.73 sqM); Albumin 3.1 g/dL (3.5-5.0); Albumin/Globulin Ratio 1.2; Alkaline Phosphatase 702 U/L (38-126); Anion Gap 9 mmol/L; Blood Urea Nitrogen 14 mg/dL (9-20); Calcium 8.6 mg/dL (8.4-10.2); Carbon Dioxide 31 mmol/L (22-30); Chloride 94 mmol/L (98-107); Globulin 2.5 g/dL; Glucose 148 mg/dL (74-99); Non-African American GFR(CKD) >90 (>60 ml/min/1.73 sqM); Potassium 4.5 mmol/L (3.5-5.1); Sodium 134 mmol/L (137-145); Total Protein 5.6 g/dL (6.3-8.2)
[2022-07-27 14:45] VITALS: BMI 26.1
--- NOTE | 2022-07-27 18:16 | P.PN ---
Subjective Progress Note Date: 07/27/22 Principal diagnosis: Liver lesions Objective - Vital Signs Vital signs: Vital Signs Temp 97.6 F 07/27/22 07:58 Pulse 80 07/27/22 07:58 Resp 16 07/27/22 07:58 BP 124/80 07/27/22 07:58 Pulse Ox 96 07/27/22 07:58 FiO2 Intake & Output 07/26/22 07/27/22 07/27/22 18:59 06:59 18:59 Output Total 3 Balance -3 Weight 89.811 kg Output: Urine 3 Other: Voiding Method Toilet - Constitutional General appearance: Present: average body habitus, cooperative, no acute distress - EENT Eyes: Present: anicteric sclerae, EOMI ENT: Present: hearing grossly normal - Respiratory Respiratory: bilateral: CTA - Cardiovascular Rhythm: regular Heart sounds: normal: S1, S2 Abnormal Heart Sounds: Absent: systolic murmur, diastolic murmur, rub, S3 Gallop, S4 Gallop, click, other - Peripheral edema leg Peripheral Edema: bilateral: None - Gastrointestinal General gastrointestinal: Present: normal bowel sounds, soft - Integumentary Integumentary: Present: normal - Neurologic Neurologic: Present: CNII-XII intact - Musculoskeletal Musculoskeletal: Present: strength equal bilaterally - Psychiatric Psychiatric: Present: A&O x's 3, appropriate affect, intact judgment & insight - Labs CBC & Chem 7: 07/27/22 14:06 07/27/22 14:06 Labs: Microbiology - Last 24 Hours (Table) 07/25/22 10:58 Blood Culture - Preliminary Blood No Growth after 24 hours 07/25/22 10:42 Blood Culture - Preliminary Blood No Growth after 24 hours Assessment and Plan (1) Liver lesion Current Visit: Yes Status: Acute Priority: High Code(s): K76.9 - LIVER DISEASE, UNSPECIFIED SNOMED Code(s): 205306570 Plan: Liver biopsy today Valium x 1 for severe anxiety Will f/u on pathology. Will request NGS and PD-L1 testing if appropriate Pt is ok from Hem/Onc standpoint to be discharged, once cleared by Attending and Consulting Physicians. See pt in ofc in the next 1-2 weeks for results of path, testing, imaging and recommendations.
[2022-07-28] MEDS: THYROID, PORK 30 MG TAB PO SCH (05:32)
[2022-07-28] MEDS: MORPHINE SULFATE 4 MG/ML SYRINGE IVP PRN (05:33)
[2022-07-28] MEDS: HYDROcodone/APAP 5-325MG 1 EACH TAB PO PRN ×2 (06:10→13:00)
[2022-07-28] MEDS: ENOXAPARIN 40 MG/0.4 ML SYRINGE SQ SCH (07:06)
[2022-07-28 07:41] LABS: ALT 144 U/L (4-49); AST 113 U/L (17-59); African American GFR (CKD) >90 (>60 ml/min/1.73 sqM); Albumin 2.8 g/dL (3.5-5.0); Albumin/Globulin Ratio 1.2; Alkaline Phosphatase 624 U/L (38-126); Anion Gap 7 mmol/L; Blood Urea Nitrogen 12 mg/dL (9-20); Calcium 8.3 mg/dL (8.4-10.2); Carbon Dioxide 32 mmol/L (22-30); Chloride 94 mmol/L (98-107); Globulin 2.4 g/dL; Glucose 90 mg/dL (74-99); Non-African American GFR(CKD) >90 (>60 ml/min/1.73 sqM); Potassium 4.7 mmol/L (3.5-5.1); Sodium 133 mmol/L (137-145); Total Bilirubin 1.2 mg/dL (0.2-1.3); Total Protein 5.2 g/dL (6.3-8.2)
[2022-07-28 07:50] LABS: Basophils # (A) 0.1 k/uL (0-0.2); Basophils % (A) 1 %; Eosinophils # (A) 1.5 k/uL (0-0.7); Eosinophils % (A) 8 %; HCT 41.7 % (39.0-53.0); HGB 13.6 gm/dL (13.0-17.5); Lymphocytes # (A) 0.7 k/uL (1.0-4.8); Lymphocytes % (A) 4 %; MCHC 32.6 g/dL (31.0-37.0); Mean Platelet Volume 8.6; Monocytes # (A) 1.3 k/uL (0-1.0); Monocytes % (A) 7 %; Neutrophils # (A) 14.4 k/uL (1.3-7.7); Neutrophils % (A) 79 %; Platelet Count 332 k/uL (150-450); RBC 4.54 m/uL (4.30-5.90); RDW 12.4 % (11.5-15.5); WBC 18.3 k/uL (3.8-10.6)
[2022-07-28] MEDS: TAMSULOSIN 0.4 MG CAP.ER.24H PO SCH (10:06)
[2022-07-28] MEDS ORDERED: LIDOCAINE 2% INJ 20 MG/ML (2 ML VIAL) ONE (11:20)
[2022-07-28] MEDS ORDERED: PROPOFOL 10 MG/ML 20 ML VIAL IV ONE (11:20)
[2022-07-28] MEDS ORDERED: SODIUM CHLORIDE 0.9% 500 ML 500 ML IV ONE (11:20)
[2022-07-28] MEDS ORDERED: PHENYLEPHRINE-0.9% NACL SYG 1,000 MCG/10 ML SYRINGE ONE (11:20)
--- NOTE | 2022-07-28 11:49 | P.OP ---
Date of Procedure: 07/28/22 Preoperative Diagnosis: metastatic disease Postoperative Diagnosis: Antral antral gastritis Esophagitis External hemorrhoids Procedure(s) Performed: EGD Colonoscopy Anesthesia: MAC Surgeon: Shon Ferro Pathology: other (Antrum, esophagus) Condition: stable Disposition: PACU Description of Procedure: The patient's placed on the endoscopy table in the lateral position. He received IV sedation. The gastro-/oropharynx passed in the esophagus and stomach. Scope was placed through the pylorus. The first and second portion of the duodenum appeared normal. Scope was then brought back the antrum this was mildly inflamed. A biopsies performed. Scope was then retroflexed and the remainder the stomach appeared normal. The scope was then brought back to the GE junction this was at 40 cm. The distal esophagus appeared inflamed and a biopsies performed. The proximal esophagus appeared normal. Scope was withdrawn for patient. Next digital rectal exam was performed. Is revealed external hemorrhoids. The flexible colonoscope was then placed patient anus and passed throughout the entire colon. Ileocecal valve was visualized. Cecum, ascending and transverse colon appeared normal. The descending and sigmoid colon appeared normal. Scope was brought back the rectum this was normal. Scope withdrawn for patient.
--- NOTE | 2022-07-28 14:48 | P.DS ---
Providers Date of admission: 07/25/22 13:40 Expected date of discharge: 07/28/22 Attending physician: Mahogany Shin MD Consults: 07/25/22 13:49 Consult Physician Routine Consulting Provider: Steven Hilliard Consult Reason/Comments: new metastic disease Do you want consulting provider notified?: Yes 07/25/22 16:03 Consult Physician Routine Consulting Provider: Shon Ferro Consult Reason/Comments: Hepatic masses Do you want consulting provider notified?: Yes Primary care physician: Samuel Whitten MD Hospital Course: Discharge Diagnosis: Metastatic liver disease, unknown primary Community-acquired pneumonia Elevated d-dimer Transaminitis Leukocytosis, likely reactive Antral gastritis Esophagitis External hemorrhoids Hospital Course: 61-year-old male with history of BPH and hypothyroidism presenting with generalized weakness, shortness of breath. Labs initially were significant for leukocytosis, elevated liver enzymes, increased d-dimer. Chest x-ray concerning for pneumonia. Started on antibiotics for community-acquired pneumonia. CTA chest showed no evidence of pulmonary embolism but showed metastatic disease to liver. CT abdomen and pelvis also showed metastatic disease, 2 masses with adjacent to the pancreas, para-aortic adenopathy, questionable area of sigmoid wall thickening. Oncology was consulted, liver biopsy, pending biopsy results. Patient will follow-up with oncology as an outpatient. Surgery consulted. EGD showed gastric inflammation, biopsies were performed, distal esophagitis. Colonoscopy showed external hemorrhoids. At discharge, patient completed a course of azithromycin, 1 more day of Cefdinir. Patient seen and examined at bedside. Vital signs reviewed and stable. General: nontoxic, no distress, appears at stated age Derm: warm, dry Head: atraumatic, normocephalic, symmetric Eyes: EOMI, no lid lag, anicteric sclera Mouth: no lip lesion, mucus membranes moist Cardiovascular: S1S2 reg, no murmur Lungs: CTA bilateral, no rhonchi, no rales , no accessory muscle use Abdominal: soft, nontender to palpation, no guarding, no appreciable organomegaly Ext: no gross muscle atrophy, no edema, no contractures Neuro: CN II-XI grossly intact, no focal neuro deficits Psych: Alert, oriented, appropriate affect A total of 37 minutes of time were spent preparing this complex discharge summary. Patient was discharged on 07/28/22 at 14:35. Patient Condition at Discharge: Stable Plan - Discharge Summary Discharge Rx Participant: No New Discharge Prescriptions: New Cefdinir 300 mg PO Q12HR #2 cap Pantoprazole [Protonix] 40 mg PO BID #60 tab HYDROcodone/APAP 5-325MG [Wilson 5-325] 1 each PO Q6HR PRN #7 tab PRN Reason: Moderate To Severe Pain Acetaminophen Tab [Tylenol] 650 mg PO Q6HR PRN #60 tab PRN Reason: Mild Pain Or Fever > 100.5 Continue Thyroid,Pork [Garment Sewer Hand Thyroid] 60 mg PO DAILY Tamsulosin [Flomax] 0.4 mg PO DAILY Albuterol Inhaler [Ventolin Hfa Inhaler] 1 puff INHALATION RT-Q6H PRN PRN Reason: Shortness Of Breath Discharge Medication List Albuterol Inhaler [Ventolin Hfa Inhaler] 1 puff INHALATION RT-Q6H PRN 07/25/22 [History] Tamsulosin [Flomax] 0.4 mg PO DAILY 07/25/22 [History] Thyroid,Pork [Garment Sewer Hand Thyroid] 60 mg PO DAILY 07/25/22 [History] Acetaminophen Tab [Tylenol] 650 mg PO Q6HR PRN #60 tab 07/28/22 [Rx] Cefdinir 300 mg PO Q12HR #2 cap 07/28/22 [Rx] HYDROcodone/APAP 5-325MG [Wilson 5-325] 1 each PO Q6HR PRN #7 tab 07/28/22 [Rx] Pantoprazole [Protonix] 40 mg PO BID #60 tab 07/28/22 [Rx] Follow up Appointment(s)/Referral(s): Steven Hilliard MD [STAFF PHYSICIAN] - 2 Weeks Samuel Whitten MD [Primary Care Provider] - 1-2 days Activity/Diet/Wound Care/Special Instructions: Please see oncology in 1-2 weeks. Please see PCP in 1-2 days. Discharge Disposition: HOME SELF-CARE
[2022-07-28 15:34] VITALS: BP 100/65; PULSE 74; RESP 18; TEMP 99.4
== END 2022-07-28 16:25 | disposition home or self-care (01) | DRG 871 ==
LOC: EC 10:25 → 5NMEDONC 13:40 → 4SSUR 07-26 19:57
PROVIDERS: ADMIT Internal Medicine; ATTEND Internal Medicine
PROC: 0FB23ZX Excision of Left Lobe Liver, Percutaneous Approach, Diagnostic (ICD-10-PCS; principal; 2022-07-27)
PROC: 0DB68ZX Excision of Stomach, Via Natural or Artificial Opening Endoscopic, Diagnostic (ICD-10-PCS; 2022-07-28)
PROC: 0DJD8ZZ Inspection of Lower Intestinal Tract, Via Natural or Artificial Opening Endoscopic (ICD-10-PCS; 2022-07-28)
PROC: 0DB38ZX Excision of Lower Esophagus, Via Natural or Artificial Opening Endoscopic, Diagnostic (ICD-10-PCS; 2022-07-28 10:45)
DX: A41.9 Sepsis, unspecified organism (principal); J18.9 Pneumonia, unspecified organism; C78.7 Secondary malignant neoplasm of liver and intrahepatic bile duct; E03.9 Hypothyroidism, unspecified; K20.90 Esophagitis, unspecified without bleeding; K29.70 Gastritis, unspecified, without bleeding; R59.0 Localized enlarged lymph nodes; K64.4 Residual hemorrhoidal skin tags; C80.1 Malignant (primary) neoplasm, unspecified; N40.0 Benign prostatic hyperplasia without lower urinary tract symptoms; Z79.899 Other long term (current) drug therapy; Z87.01 Personal history of pneumonia (recurrent); Z86.16 Personal history of COVID-19; Z80.42 Family history of malignant neoplasm of prostate
CPT/HCPCS: 36415; 43239; 45378; 47000; 71046; 71275; 74176; 76942; 80053; 83605; 83735; 83880; 84443; 84484; 85025; 85379; 85610; 85730; 87040; 88307; 88341; 88342; 93005; 96365; 96366; 96367; 96375; 96376; 99285